=== PATIENT | male | born 1925 | race Caucasian/White ===

== ENCOUNTER → 2016-08-14 | Outpatient (CLI) | payer MEDICARE ==
[~2016-08-14] MED LIST: ASPIRIN 32325 MG/TAB PO; LEVOXYL0.1 MG PO; TIMOLOL MALEATE5 M1 OU; TYLENOL 500MG500 MG PO
== END ==
LOC: COL.RAD 12:53
DX: N28.1 Cyst of kidney, acquired (principal); N13.39 Other hydronephrosis; R82.99 Other abnormal findings in urine; Z85.51 Personal history of malignant neoplasm of bladder

== ENCOUNTER → 2016-08-21 | Outpatient (CLI) | payer MEDICARE | LOC: COL.RAD 13:17 | DX: R82.99 Other abnormal findings in urine (principal); Z85.51 Personal history of malignant neoplasm of bladder; N13.70 Vesicoureteral-reflux, unspecified | CPT/HCPCS: Q9967 ==

== ENCOUNTER 2016-10-06 22:46 | Inpatient (IN) | payer MEDICARE ==
[~2016-10-06] VITALS: Ht 170.2 cm; Wt 64.1 kg
[~2016-10-06 22:46] MED LIST changes: -ASPIRIN 32325 MG/TAB PO; -LEVOXYL0.1 MG PO; -TYLENOL 500MG500 MG PO
[2016-10-06 23:51] LABS: BASO % 0.2 % (0.0-2.0); EOS % 16.2 % (0-4.0); GRAN # 4.1 (1.4-6.5); GRAN % 65.7 % (42.2-75.2); HEMOGLOBIN 11.7 g/dl (13.5-18.0); LYMPH # 0.6 (1.2-3.4); LYMPH % 9.3 % (20.0-51.0); MEAN CELL VOLUME 83 fl (80.0-100.0); MEAN CORPUSCULAR HEMOGLOBIN 27 pg (27.0-31.0); MEAN CORPUSCULAR HGB CONC 33 g/dl (33.0-37.0); MEAN PLATELET VOLUME 8.7 fl (7.4-10.4); MONO # 0.5 (0.1-0.6); MONO % 7.6 % (1.7-9.3); PLATELET COUNT 426 K/mm3 (130-400); RED BLOOD COUNT 4.27 M/mm3 (4.20-5.60); REDCELL DISTRIBUTION WIDTH-CV 17.5 % (11.5-14.5); WHITE BLOOD COUNT 6.2 K/mm3 (4.8-10.8)
[2016-10-06 23:52] LABS: HEMATOCRIT 35.4 % (42.0-52.0)
[2016-10-07 00:19] LABS: ADJUSTED CALCIUM 9.6 mg/dL (8.4-10.2); ALBUMIN 3.2 gm/dL (3.5-5.0); BILIRUBIN,TOTAL 0.9 mg/dL (0.0-1.0); CREATININE, serum 1.64 mg/dL (0.66-1.25); POTASSIUM 3.8 mmol/L (3.4-5.0)
[2016-10-07 01:43] LABS: PH 7 (5-8); URINE APPEARANCE Cloudy; URINE BILIRUBIN Negative (NEGATIVE); URINE BLOOD 1+ (NEGATIVE); URINE COLOR Amber; URINE GLUCOSE Negative (NEGATIVE); URINE KETONE Trace (NEGATIVE); URINE UROBILINOGEN Negative (NEGATIVE)
[2016-10-07 01:58] LABS: SQUAMOUS EPITHELIAL 0-2 /hpf
[2016-10-07 01:59] LABS: URINE BACTERIA Moderate /hpf
[2016-10-07] MEDS ORDERED: LEVOXYL0.1 MG PO (02:43)
[2016-10-07 03:03] VITALS: BP 99/52; PULSE 108; TEMP 97.9
[2016-10-07] MEDS ORDERED: TYLENOL 500MG500 MG PO (03:30)
[2016-10-07] MEDS ORDERED: ASPIRIN 32325 MG/TAB PO (03:32)
[2016-10-07 06:25] VITALS: BP 96/52; PULSE 101; TEMP 98.6
[2016-10-07 09:52] VITALS: BP 112/54; PULSE 100; TEMP 97.7
[2016-10-07 10:49] LABS: MEAN CELL VOLUME 82 fl (80.0-100.0); MEAN CORPUSCULAR HGB CONC 33 g/dl (33.0-37.0); MEAN PLATELET VOLUME 8.6 fl (7.4-10.4); PLATELET COUNT 416 K/mm3 (130-400); RED BLOOD COUNT 4.41 M/mm3 (4.20-5.60); REDCELL DISTRIBUTION WIDTH-CV 17.5 % (11.5-14.5); WHITE BLOOD COUNT 12.9 K/mm3 (4.8-10.8)
[2016-10-07 10:50] LABS: ADD PATHOLOGY DIFF REVIEW NO; HEMATOCRIT 36.1 % (42.0-52.0); HEMOGLOBIN 11.8 g/dl (13.5-18.0); MEAN CORPUSCULAR HEMOGLOBIN 27 pg (27.0-31.0)
[2016-10-07 11:00] LABS: ADJUSTED CALCIUM 9.5 mg/dL (8.4-10.2); ALBUMIN 2.7 gm/dL (3.5-5.0); BILIRUBIN,TOTAL 0.9 mg/dL (0.0-1.0); CALCIUM 8.5 mg/dL (8.4-10.2); CREATININE, serum 1.95 mg/dL (0.66-1.25); POTASSIUM 3.9 mmol/L (3.4-5.0); TOTAL PROTEIN 6.2 gm/dL (6.4-8.2)
[2016-10-07 11:22] LABS: BAND 53 % (0-10); NEUTROPHILS 30 % (42.0-75.2); TOTAL CELLS COUNTED 100
[2016-10-07 11:23] LABS: PLATELET ESTIMATE INCREASED (NORMAL)
[2016-10-07 14:17] VITALS: BP 129/60; PULSE 101; TEMP 97.6
[2016-10-07 18:30] VITALS: BP 110/60; PULSE 102; TEMP 97.5
[2016-10-07 21:33] VITALS: BP 120/60; PULSE 100; TEMP 97.7
[2016-10-07 22:22] LABS: MEAN CELL VOLUME 82 fl (80.0-100.0); MEAN CORPUSCULAR HGB CONC 33 g/dl (33.0-37.0); MEAN PLATELET VOLUME 8.9 fl (7.4-10.4); PLATELET COUNT 428 K/mm3 (130-400); RED BLOOD COUNT 4.21 M/mm3 (4.20-5.60); REDCELL DISTRIBUTION WIDTH-CV 17.6 % (11.5-14.5); WHITE BLOOD COUNT 13.7 K/mm3 (4.8-10.8)
[2016-10-07 22:24] LABS: HEMATOCRIT 34.3 % (42.0-52.0); HEMOGLOBIN 11.3 g/dl (13.5-18.0); MEAN CORPUSCULAR HEMOGLOBIN 27 pg (27.0-31.0)
[2016-10-07 22:25] LABS: ADD PATHOLOGY DIFF REVIEW NO
[2016-10-07 22:35] LABS: CALCIUM 8.5 mg/dL (8.4-10.2); CREATININE, serum 2.75 mg/dL (0.66-1.25)
[2016-10-07 22:45] LABS: BAND 66 % (0-10); NEUTROPHILS 20 % (42.0-75.2); TOTAL CELLS COUNTED 100
[2016-10-08] VITALS (245 sets, daily range): BP systolic 89–130; BP diastolic 50–96; PULSE 105–110; TEMP 97–98; O2SAT 49–97
[2016-10-08 03:13] LABS: ALLEN TEST NO; ARTERIAL BLD GAS O2 SATURATION 89.1 % (92-100); ARTERIAL BLD GAS TCO2 CT 14.3; ARTERIAL BLOOD GAS BASE EXCESS -16.4 (-2-2); ARTERIAL BLOOD GAS HCO3 12.9 meq/L (22-26); ARTERIAL BLOOD GAS PO2 79.2 mmHg (80-100); ARTERIAL BLOOD GAS pH 7.08 (7.35-7.45); ATS? YES
== END 2016-10-08 09:15 | disposition expired | DRG 871 ==
LOC: COL.ER 22:46 → SURG 10-07 02:16 → ICU 10-08 02:54
PROVIDERS: Family Medicine; Surgery
DX: A41.9 Sepsis, unspecified organism (principal); K55.019 Acute (reversible) ischemia of small intestine, extent unspecified; J18.9 Pneumonia, unspecified organism; E43 Unspecified severe protein-calorie malnutrition; K56.60 Unspecified intestinal obstruction; E87.2 Acidosis; N17.9 Acute kidney failure, unspecified; Z66 Do not resuscitate; Z93.2 Ileostomy status
CPT/HCPCS: J1170; J1956; J7030; J7120